=== PATIENT | female | born 1985 | race African-American/Black ===

== ENCOUNTER 2020-02-19 16:23 | Inpatient (IN) | payer OTHER ==
[2020-02-19 18:32] VITALS: BMI 23.9
[2020-02-19] MEDS ORDERED: MAGNESIUM HYDROX 2400MG/30ML ORAL SUSPENSION 30 ML CUP PO PRN (19:08)
[2020-02-19] MEDS ORDERED: MENTHOL/PHENOL 1 EACH UD MM PRN (19:08)
[2020-02-19] MEDS ORDERED: NICOTINE POLACRILEX 2 MG GUM BUC PRN (19:08)
[2020-02-19] MEDS ORDERED: MAG HYDROX/AL HYDROX/SIMETH 30 ML UNIT-DOSE CUP PO PRN (19:08)
[2020-02-19] MEDS ORDERED: chlordiazePOXIDE HCL 25 MG CAPSULE PO PRN (19:08)
[2020-02-19] MEDS ORDERED: MAGNESIUM CITRATE 300 ML BOTTLE PO PRN (19:08)
[2020-02-19] MEDS ORDERED: ACETAMINOPHEN 325 MG TABLET (FP) PO PRN (19:08)
[2020-02-19] MEDS ORDERED: ALBUTEROL SO4 HFA INHALER IH PRN (19:11)
[2020-02-19] MEDS: MELATONIN 5 MG TABLETS PO SCH (22:14)
[2020-02-19] MEDS: THIAMINE HCL 100 MG TABLET (FP) PO SCH (22:14)
[2020-02-19] MEDS: chlordiazePOXIDE HCL 25 MG CAPSULE PO SCH (22:15)
[2020-02-19] MEDS: ONDANSETRON *ODT* 4 MG TABLET SL PRN (22:17)
[2020-02-20] MEDS: ONDANSETRON *ODT* 4 MG TABLET SL PRN (03:59)
[2020-02-20] MEDS: chlordiazePOXIDE HCL 25 MG CAPSULE PO SCH ×4 (07:09→22:06)
[2020-02-20] MEDS: ACETAMINOPHEN 325 MG TABLET (FP) PO PRN ×2 (09:13→20:58)
[2020-02-20 10:03] LABS: HEMATOCRIT 36.7 % (32.4-45.2); HEMOGLOBIN 11.9 GM/dL (10.7-15.3); MCH 31.7 pg (25.7-33.7); MCHC 32.3 g/dl (32.0-36.0); MEAN CELL VOLUME 98.1 fl (80-96); MEAN PLT VOLUME 8.4 fl (7.5-11.1); PLATELET COUNT 249 K/MM3 (134-434); RBC 3.74 M/mm3 (3.60-5.2); RDW 13.4 % (11.6-15.6); WHITE BLOOD COUNT 7.7 K/mm3 (4.0-10.0)
[2020-02-20] MEDS: PRENATAL VITAMINS W/ FOLIC ACID TABLET (FP) PO SCH (10:07)
[2020-02-20] MEDS: NICOTINE 21 MG/24 HOURS TOPICAL PATCH TD SCH (10:07)
[2020-02-20 10:12] LABS: POTASSIUM 3.7 mmol/L (3.5-5.1)
[2020-02-20 10:24] LABS: ALBUMIN 3.4 g/dl (3.4-5.0); BLOOD UREA NITROGEN 7.4 mg/dL (7-18); CALCIUM 9.4 mg/dL (8.5-10.1)
[2020-02-20 10:27] LABS: CREATININE 0.9 mg/dL (0.55-1.3)
[2020-02-20 10:29] LABS: BILIRUBIN,TOTAL 1.1 mg/dL (0.2-1); TOT PROT 6.4 g/dl (6.4-8.2)
[2020-02-20 11:09] LABS: HIV INTERPRETATION NEGATIVE (NEGATIVE)
[2020-02-20] MEDS: BISMUTH SUBSALICYLATE 524 MG/30 ML UD PO PRN (13:59)
[2020-02-20] MEDS: THIAMINE HCL 100 MG TABLET (FP) PO SCH (22:06)
[2020-02-20] MEDS: MELATONIN 5 MG TABLETS PO SCH (22:07)
[2020-02-21] MEDS: ACETAMINOPHEN 325 MG TABLET (FP) PO PRN ×2 (05:42→15:28)
[2020-02-21] MEDS: chlordiazePOXIDE HCL 25 MG CAPSULE PO SCH ×4 (05:42→22:07)
[2020-02-21] MEDS: METHOCARBAMOL 500 MG TABLET PO PRN (05:43)
[2020-02-21] MEDS ORDERED: LOPERAMIDE HCL 2 MG CAPSULE PO ONE (09:46)
[2020-02-21] MEDS ORDERED: DICYCLOMINE HCL 10 MG CAPSULE PO ONE (09:47)
[2020-02-21] MEDS ORDERED: IBUPROFEN 400 MG TABLET (FP) PO ONE (09:47)
[2020-02-21] MEDS: PRENATAL VITAMINS W/ FOLIC ACID TABLET (FP) PO SCH (10:02)
[2020-02-21] MEDS: NICOTINE 21 MG/24 HOURS TOPICAL PATCH TD SCH (10:03)
[2020-02-21] MEDS: LIDOCAINE 5% TOPICAL PATCH TP SCH (10:38)
[2020-02-21] MEDS ORDERED: PNEUMOCOCCAL 23 VACCINE 0.5 ML VIAL IM ONE (12:00)
[2020-02-21] MEDS ORDERED: PNEUMOC 13-VAL CONJ-DIP CRM/PF 0.5 ML DISP.SYRIN IM ONE (12:00)
[2020-02-21] MEDS ORDERED: FLU VACCINE (FLULAVAL) PF 60 MCG/0.5 ML SYRINGE 2020-2021 IM ONE (12:00)
[2020-02-21] MEDS ORDERED: COLLOIDAL OATMEAL 1 BAR EACH TP PRN (13:33)
[2020-02-21] MEDS: BISMUTH SUBSALICYLATE 524 MG/30 ML UD PO PRN (15:32)
[2020-02-21] MEDS: ONDANSETRON *ODT* 4 MG TABLET SL PRN (17:15)
[2020-02-21] MEDS: IBUPROFEN 400 MG TABLET (FP) PO PRN (18:59)
[2020-02-21] MEDS: LIDOCAINE PATCH REMOVAL MC SCH (22:07)
[2020-02-21] MEDS: THIAMINE HCL 100 MG TABLET (FP) PO SCH (22:07)
[2020-02-21] MEDS: MELATONIN 5 MG TABLETS PO SCH (22:08)
[2020-02-22] MEDS ORDERED: chlordiazePOXIDE HCL 10 MG CAPSULE PO PRN
[2020-02-22] MEDS: chlordiazePOXIDE HCL 10 MG CAPSULE PO SCH ×4 (06:31→22:18)
[2020-02-22] MEDS: METHOCARBAMOL 500 MG TABLET PO PRN ×3 (06:31→22:21)
[2020-02-22] MEDS: ACETAMINOPHEN 325 MG TABLET (FP) PO PRN ×2 (06:33→12:30)
[2020-02-22] MEDS: MINERAL OIL/PETROLAT/WATER TOPICAL CREAM 113 GM JAR TP SCH (10:07)
[2020-02-22] MEDS: PRENATAL VITAMINS W/ FOLIC ACID TABLET (FP) PO SCH (10:07)
[2020-02-22] MEDS: LIDOCAINE 5% TOPICAL PATCH TP SCH (10:07)
[2020-02-22] MEDS: NICOTINE 21 MG/24 HOURS TOPICAL PATCH TD SCH (10:10)
[2020-02-22] MEDS: IBUPROFEN 400 MG TABLET (FP) PO PRN (18:22)
[2020-02-22] MEDS: THIAMINE HCL 100 MG TABLET (FP) PO SCH (22:18)
[2020-02-22] MEDS: BACITRACIN 0.9 GM PACKET TP SCH (22:18)
[2020-02-22] MEDS: MELATONIN 5 MG TABLETS PO SCH (22:18)
[2020-02-22] MEDS: CARBAMIDE PEROXIDE 6.5% OTIC 15 ML BOTTLE AS SCH (22:19)
[2020-02-22] MEDS: LIDOCAINE PATCH REMOVAL MC SCH (22:21)
[2020-02-23] MEDS: chlordiazePOXIDE HCL 10 MG CAPSULE PO SCH ×2 (06:05→17:44)
[2020-02-23] MEDS: MINERAL OIL/PETROLAT/WATER TOPICAL CREAM 113 GM JAR TP SCH (10:11)
[2020-02-23] MEDS: NICOTINE 21 MG/24 HOURS TOPICAL PATCH TD SCH (10:11)
[2020-02-23] MEDS: PRENATAL VITAMINS W/ FOLIC ACID TABLET (FP) PO SCH (10:11)
[2020-02-23] MEDS: CARBAMIDE PEROXIDE 6.5% OTIC 15 ML BOTTLE AS SCH ×2 (10:11→22:07)
[2020-02-23] MEDS: BACITRACIN 0.9 GM PACKET TP SCH ×2 (10:12→22:07)
[2020-02-23] MEDS: LIDOCAINE 5% TOPICAL PATCH TP SCH (10:12)
[2020-02-23] MEDS ORDERED: MASKS NR ONE (13:29)
[2020-02-23] MEDS: IBUPROFEN 400 MG TABLET (FP) PO PRN (14:34)
[2020-02-23] MEDS: ACETAMINOPHEN 325 MG TABLET (FP) PO PRN (18:43)
[2020-02-23] MEDS: ONDANSETRON *ODT* 4 MG TABLET SL PRN (19:42)
[2020-02-23] MEDS: MELATONIN 5 MG TABLETS PO SCH (22:07)
[2020-02-23] MEDS: LIDOCAINE PATCH REMOVAL MC SCH (22:07)
[2020-02-23] MEDS: THIAMINE HCL 100 MG TABLET (FP) PO SCH (22:07)
[2020-02-23] MEDS: hydrOXYzine PAMOATE 25 MG CAPSULE (FP) PO PRN (23:28)
[2020-02-24] MEDS ORDERED: chlordiazePOXIDE HCL 10 MG CAPSULE PO ONE (05:00)
[2020-02-24] MEDS: hydrOXYzine PAMOATE 25 MG CAPSULE (FP) PO PRN (05:38)
[2020-02-24] MEDS: CARBAMIDE PEROXIDE 6.5% OTIC 15 ML BOTTLE AS SCH (10:29)
[2020-02-24] MEDS: MINERAL OIL/PETROLAT/WATER TOPICAL CREAM 113 GM JAR TP SCH (10:29)
[2020-02-24] MEDS: PRENATAL VITAMINS W/ FOLIC ACID TABLET (FP) PO SCH (10:30)
[2020-02-24] MEDS: LIDOCAINE 5% TOPICAL PATCH TP SCH (10:30)
[2020-02-24] MEDS: NICOTINE 21 MG/24 HOURS TOPICAL PATCH TD SCH (10:30)
[2020-02-24] MEDS: BACITRACIN 0.9 GM PACKET TP SCH (10:30)
[2020-02-24 17:39] VITALS: BP 98/61; PULSE 57; TEMP 97.5
== END 2020-02-24 17:46 | disposition other institution (70) | DRG 897 ==
LOC: YASAS 16:23 → Y3N 20:00
PROVIDERS: ADMIT Allergy & Immunology; ATTEND Allergy & Immunology
PROC: HZ2ZZZZ Detoxification Services for Substance Abuse Treatment (ICD-10-PCS; principal; 2020-02-19)
DX: F10.230 Alcohol dependence with withdrawal, uncomplicated (principal); F14.20 Cocaine dependence, uncomplicated; F17.213 Nicotine dependence, cigarettes, with withdrawal; F31.9 Bipolar disorder, unspecified; F19.24 Other psychoactive substance dependence with psychoactive substance-induced mood disorder; J45.20 Mild intermittent asthma, uncomplicated; L29.8 Other pruritus; M54.89 Other dorsalgia; G89.29 Other chronic pain; R22.2 Localized swelling, mass and lump, trunk; H61.22 Impacted cerumen, left ear; Z88.0 Allergy status to penicillin; Z56.0 Unemployment, unspecified; Z59.0 Homelessness
CPT/HCPCS: 36415; 80053; 81025; 85027; 86780; 87389; 90732; 93005; 93010; C9803; G0008; G0009; Q0162; Q2036; U0003

== ENCOUNTER 2020-02-24 17:48 | Inpatient (IN) | payer OTHER ==
[~2020-02-24 17:48] MED LIST: COLLOIDAL OATMEAL 1 BAR EACH TP PRN; LOPERAMIDE HCL 2 MG CAPSULE PO PRN; MAG HYDROX/AL HYDROX/SIMETH 30 ML UNIT-DOSE CUP PO PRN; MAGNESIUM CITRATE 300 ML BOTTLE PO PRN; MAGNESIUM HYDROX 2400MG/30ML ORAL SUSPENSION 30 ML CUP PO PRN; NICOTINE POLACRILEX 4 MG GUM BC PRN; P-EPHED 60MG/TRIPROLIDI 2.5MG TABLET PO PRN; guaiFENesin 200 MG/10 ML 10 ML UNIT-DOSE CUPS PO PRN
[2020-02-24] MEDS: VITAMINS A AND D TOPICAL OINTMENT 60 GM TUBE TP SCH ×2 (18:00→23:58)
[2020-02-24] MEDS: ACETAMINOPHEN 325 MG TABLET (FP) PO PRN (18:36)
[2020-02-24] MEDS: BACITRACIN 0.9 GM PACKET TP SCH (21:23)
[2020-02-24] MEDS: THIAMINE HCL 100 MG TABLET (FP) PO SCH (21:23)
[2020-02-24] MEDS: MELATONIN 5 MG TABLETS PO SCH (21:23)
[2020-02-24] MEDS: CARBAMIDE PEROXIDE 6.5% OTIC 15 ML BOTTLE AU SCH (21:24)
[2020-02-25] MEDS: VITAMINS A AND D TOPICAL OINTMENT 60 GM TUBE TP SCH ×4 (00:42→17:50)
[2020-02-25] MEDS: IBUPROFEN 400 MG TABLET (FP) PO PRN ×2 (05:12→17:41)
[2020-02-25] MEDS: LIDOCAINE 5% TOPICAL PATCH TP SCH (09:37)
[2020-02-25] MEDS: NICOTINE 21 MG/24 HOURS TOPICAL PATCH TD SCH (09:38)
[2020-02-25] MEDS: CARBAMIDE PEROXIDE 6.5% OTIC 15 ML BOTTLE AU SCH ×2 (09:38→21:48)
[2020-02-25] MEDS: BACITRACIN 0.9 GM PACKET TP SCH ×2 (09:38→21:47)
[2020-02-25] MEDS: PRENATAL VITAMINS W/ FOLIC ACID TABLET (FP) PO SCH (09:39)
[2020-02-25] MEDS ORDERED: PT OWN MED DRAWER 7, Y5N ONE ×3 (10:25→21:49)
[2020-02-25] MEDS: MELATONIN 5 MG TABLETS PO SCH (21:47)
[2020-02-25] MEDS: THIAMINE HCL 100 MG TABLET (FP) PO SCH (21:47)
[2020-02-25] MEDS: LIDOCAINE PATCH REMOVAL MC SCH (21:48)
[2020-02-26] MEDS: VITAMINS A AND D TOPICAL OINTMENT 60 GM TUBE TP SCH ×4 (00:52→21:24)
[2020-02-26] MEDS: ACETAMINOPHEN 325 MG TABLET (FP) PO PRN (06:28)
[2020-02-26] MEDS ORDERED: PT OWN MED DRAWER 7, Y5N ONE (09:07)
[2020-02-26] MEDS: BACITRACIN 0.9 GM PACKET TP SCH ×2 (10:01→21:23)
[2020-02-26] MEDS: LIDOCAINE 5% TOPICAL PATCH TP SCH (10:01)
[2020-02-26] MEDS: PRENATAL VITAMINS W/ FOLIC ACID TABLET (FP) PO SCH (10:02)
[2020-02-26] MEDS: NICOTINE 21 MG/24 HOURS TOPICAL PATCH TD SCH (10:02)
[2020-02-26] MEDS: IBUPROFEN 400 MG TABLET (FP) PO PRN ×2 (10:02→16:37)
[2020-02-26] MEDS: CARBAMIDE PEROXIDE 6.5% OTIC 15 ML BOTTLE AU SCH ×2 (11:35→21:23)
[2020-02-26] MEDS: MELATONIN 5 MG TABLETS PO SCH (21:22)
[2020-02-26] MEDS: THIAMINE HCL 100 MG TABLET (FP) PO SCH (21:22)
[2020-02-26] MEDS: LIDOCAINE PATCH REMOVAL MC SCH (21:22)
[2020-02-26] MEDS: ERYTHROMYCIN 0.5% OPHTHALMIC OINTMENT 3.5 GM TUBE OD SCH (21:24)
[2020-02-27] MEDS: VITAMINS A AND D TOPICAL OINTMENT 60 GM TUBE TP SCH ×4 (00:44→18:12)
[2020-02-27] MEDS: IBUPROFEN 400 MG TABLET (FP) PO PRN ×3 (02:58→21:16)
[2020-02-27] MEDS: BACITRACIN 0.9 GM PACKET TP SCH ×2 (09:09→21:15)
[2020-02-27] MEDS: NICOTINE 21 MG/24 HOURS TOPICAL PATCH TD SCH (09:09)
[2020-02-27] MEDS: LIDOCAINE 5% TOPICAL PATCH TP SCH (09:09)
[2020-02-27] MEDS: PRENATAL VITAMINS W/ FOLIC ACID TABLET (FP) PO SCH (09:09)
[2020-02-27] MEDS: CARBAMIDE PEROXIDE 6.5% OTIC 15 ML BOTTLE AU SCH ×3 (09:10→21:16)
[2020-02-27] MEDS: ACETAMINOPHEN 325 MG TABLET (FP) PO PRN (12:57)
[2020-02-27] MEDS ORDERED: PT OWN MED DRAWER 7, Y5N ONE ×2 (12:59→14:57)
[2020-02-27] MEDS: MELATONIN 5 MG TABLETS PO SCH (21:15)
[2020-02-27] MEDS: THIAMINE HCL 100 MG TABLET (FP) PO SCH (21:15)
[2020-02-27] MEDS: ERYTHROMYCIN 0.5% OPHTHALMIC OINTMENT 3.5 GM TUBE OD SCH (21:16)
[2020-02-27] MEDS: LIDOCAINE PATCH REMOVAL MC SCH (21:16)
[2020-02-28] MEDS: VITAMINS A AND D TOPICAL OINTMENT 60 GM TUBE TP SCH ×4 (00:18→19:15)
[2020-02-28] MEDS: IBUPROFEN 400 MG TABLET (FP) PO PRN ×2 (03:32→09:37)
[2020-02-28] MEDS ORDERED: PT OWN MED DRAWER 7, Y5N ONE (08:11)
[2020-02-28] MEDS: LIDOCAINE 5% TOPICAL PATCH TP SCH (09:35)
[2020-02-28] MEDS: PRENATAL VITAMINS W/ FOLIC ACID TABLET (FP) PO SCH (09:35)
[2020-02-28] MEDS: NICOTINE 21 MG/24 HOURS TOPICAL PATCH TD SCH (09:35)
[2020-02-28] MEDS: CARBAMIDE PEROXIDE 6.5% OTIC 15 ML BOTTLE AU SCH ×2 (09:36→21:15)
[2020-02-28] MEDS: BACITRACIN 0.9 GM PACKET TP SCH ×2 (09:36→21:16)
[2020-02-28] MEDS: THIAMINE HCL 100 MG TABLET (FP) PO SCH (21:14)
[2020-02-28] MEDS: MELATONIN 5 MG TABLETS PO SCH (21:15)
[2020-02-28] MEDS: LIDOCAINE PATCH REMOVAL MC SCH (21:15)
[2020-02-28] MEDS: ERYTHROMYCIN 0.5% OPHTHALMIC OINTMENT 3.5 GM TUBE OD SCH (21:15)
[2020-02-28] MEDS: ACETAMINOPHEN 325 MG TABLET (FP) PO PRN (21:55)
[2020-02-29] MEDS: VITAMINS A AND D TOPICAL OINTMENT 60 GM TUBE TP SCH ×4 (00:21→19:17)
[2020-02-29] MEDS: ACETAMINOPHEN 325 MG TABLET (FP) PO PRN ×2 (01:02→08:14)
[2020-02-29] MEDS: BACITRACIN 0.9 GM PACKET TP SCH ×2 (09:16→21:39)
[2020-02-29] MEDS: LIDOCAINE 5% TOPICAL PATCH TP SCH (09:16)
[2020-02-29] MEDS: PRENATAL VITAMINS W/ FOLIC ACID TABLET (FP) PO SCH (09:16)
[2020-02-29] MEDS: NICOTINE 21 MG/24 HOURS TOPICAL PATCH TD SCH (09:16)
[2020-02-29] MEDS: CARBAMIDE PEROXIDE 6.5% OTIC 15 ML BOTTLE AU SCH ×2 (09:16→21:39)
[2020-02-29] MEDS ORDERED: PT OWN MED DRAWER 7, Y5N ONE (18:50)
[2020-02-29] MEDS: MELATONIN 5 MG TABLETS PO SCH (21:37)
[2020-02-29] MEDS: THIAMINE HCL 100 MG TABLET (FP) PO SCH (21:37)
[2020-02-29] MEDS: LIDOCAINE PATCH REMOVAL MC SCH (21:38)
[2020-02-29] MEDS: ERYTHROMYCIN 0.5% OPHTHALMIC OINTMENT 3.5 GM TUBE OD SCH (21:39)
[2020-03-01] MEDS: VITAMINS A AND D TOPICAL OINTMENT 60 GM TUBE TP SCH ×4 (06:26→18:32)
[2020-03-01] MEDS: PRENATAL VITAMINS W/ FOLIC ACID TABLET (FP) PO SCH (10:18)
[2020-03-01] MEDS: NICOTINE 21 MG/24 HOURS TOPICAL PATCH TD SCH (10:19)
[2020-03-01] MEDS: LIDOCAINE 5% TOPICAL PATCH TP SCH (10:19)
[2020-03-01] MEDS: BACITRACIN 0.9 GM PACKET TP SCH ×2 (10:19→21:44)
[2020-03-01] MEDS: CARBAMIDE PEROXIDE 6.5% OTIC 15 ML BOTTLE AU SCH ×2 (10:19→21:44)
[2020-03-01] MEDS ORDERED: MASKS NR ONE (13:21)
[2020-03-01] MEDS: THIAMINE HCL 100 MG TABLET (FP) PO SCH (21:42)
[2020-03-01] MEDS: LIDOCAINE PATCH REMOVAL MC SCH (21:43)
[2020-03-01] MEDS: MELATONIN 5 MG TABLETS PO SCH (21:43)
[2020-03-01] MEDS: ERYTHROMYCIN 0.5% OPHTHALMIC OINTMENT 3.5 GM TUBE OD SCH (21:44)
[2020-03-01] MEDS: IBUPROFEN 600 MG TABLET (FP) PO PRN (23:11)
[2020-03-02] MEDS: ACETAMINOPHEN 325 MG TABLET (FP) PO PRN (01:54)
[2020-03-02] MEDS: VITAMINS A AND D TOPICAL OINTMENT 60 GM TUBE TP SCH ×4 (06:34→21:29)
[2020-03-02] MEDS: CARBAMIDE PEROXIDE 6.5% OTIC 15 ML BOTTLE AU SCH ×2 (10:25→21:29)
[2020-03-02] MEDS: LIDOCAINE 5% TOPICAL PATCH TP SCH (10:25)
[2020-03-02] MEDS: PRENATAL VITAMINS W/ FOLIC ACID TABLET (FP) PO SCH (10:25)
[2020-03-02] MEDS: IBUPROFEN 600 MG TABLET (FP) PO PRN ×2 (10:26→21:26)
[2020-03-02] MEDS: BACITRACIN 0.9 GM PACKET TP SCH ×2 (10:26→21:29)
[2020-03-02] MEDS: NICOTINE 21 MG/24 HOURS TOPICAL PATCH TD SCH (10:26)
[2020-03-02] MEDS: THIAMINE HCL 100 MG TABLET (FP) PO SCH (21:24)
[2020-03-02] MEDS: MELATONIN 5 MG TABLETS PO SCH (21:24)
[2020-03-02] MEDS: LIDOCAINE PATCH REMOVAL MC SCH (21:25)
[2020-03-02] MEDS ORDERED: PT OWN MED DRAWER 7, Y5N ONE (21:28)
[2020-03-02] MEDS: ERYTHROMYCIN 0.5% OPHTHALMIC OINTMENT 3.5 GM TUBE OD SCH (21:29)
[2020-03-03] MEDS: VITAMINS A AND D TOPICAL OINTMENT 60 GM TUBE TP SCH ×2 (02:27→07:21)
[2020-03-03] MEDS: IBUPROFEN 600 MG TABLET (FP) PO PRN (05:56)
[2020-03-03 07:31] VITALS: BP 133/84; PULSE 89; TEMP 97.5
[2020-03-03] MEDS: PRENATAL VITAMINS W/ FOLIC ACID TABLET (FP) PO SCH (10:48)
[2020-03-03] MEDS: NICOTINE 21 MG/24 HOURS TOPICAL PATCH TD SCH (10:49)
[2020-03-03] MEDS: LIDOCAINE 5% TOPICAL PATCH TP SCH (10:49)
[2020-03-03] MEDS: CARBAMIDE PEROXIDE 6.5% OTIC 15 ML BOTTLE AU SCH (10:49)
[2020-03-03] MEDS: BACITRACIN 0.9 GM PACKET TP SCH (10:49)
[2020-03-03] MEDS ORDERED: PT OWN MED DRAWER 7, Y5N ONE (10:52)
== END 2020-03-03 10:55 | disposition home or self-care (01) | DRG 895 ==
LOC: YASAS 17:48 → Y3E 17:49 → Y3W 02-29 15:23
PROVIDERS: ADMIT Allergy & Immunology; ATTEND Allergy & Immunology
PROC: HZ42ZZZ Group Counseling for Substance Abuse Treatment, Cognitive-Behavioral (ICD-10-PCS; principal; 2020-02-24)
DX: F10.20 Alcohol dependence, uncomplicated (principal); F14.20 Cocaine dependence, uncomplicated; F17.210 Nicotine dependence, cigarettes, uncomplicated; H00.013 Hordeolum externum right eye, unspecified eyelid; S69.81XA Other specified injuries of right wrist, hand and finger(s), initial encounter; W22.09XA Striking against other stationary object, initial encounter; Y93.89 Activity, other specified; Y92.230 Patient room in hospital as the place of occurrence of the external cause; Y99.8 Other external cause status; Z88.0 Allergy status to penicillin; Z91.018 Allergy to other foods; Z91.040 Latex allergy status; Z59.0 Homelessness

== ENCOUNTER 2020-03-01 18:04 | Emergency (ER) | payer OTHER ==
[2020-03-01 18:15] VITALS: BP 118/74; PULSE 75; TEMP 97.8; BMI 23.3
== END 2020-03-01 20:38 | disposition home or self-care (01) ==
LOC: JERFT 18:04
DX: M25.531 Pain in right wrist (principal)
CPT/HCPCS: 73110-TC-RT-FY; 73130-TC-RT-FY; 99284-25